=== PATIENT | female | born 1970 | race Caucasian/White ===

== ENCOUNTER 2019-03-06 17:44 | Emergency (ER) | payer SELFPAY ==
[~2019-03-06] VITALS: Ht 165.1 cm; Wt 59.9 kg
[~2019-03-06 17:44] MED LIST: DIPH25CA83 PO
--- NOTE | 2019-03-06 17:50 | NUR ---
in room , 12 lead ekg done, seen by Dr Hines
[2019-03-06] MEDS ORDERED: ALBUTEROL SULFATE 2.5 MG/3 ML NEBU NEB ONE ×3 (18:00→20:45)
[2019-03-06] MEDS ORDERED: IPRATROPIUM BROMIDE 0.5 MG/2.5 ML NEBU NEB ONE (18:00)
[2019-03-06] MEDS ORDERED: methylPREDNISolone SOD SUCC 125 MG/2 ML VIAL IV ONE (18:00)
[2019-03-06 18:11] LABS: BASOPHILS % (AUTO) 0.4 % (0.0-2.0); EOSINOPHILS # (AUTO) 0.6 K/uL (0.0-0.7); EOSINOPHILS % (AUTO) 5.8 % (0.0-7.0); HEMATOCRIT 38.9 % (31.2-41.9); HEMOGLOBIN 13.1 g/dL (10.9-14.3); LYMPHOCYTES # (AUTO) 0.9 K/uL (20.0-40.0); LYMPHOCYTES % (AUTO) 8.2 % (20.5-51.5); MEAN CORPUSCULAR HEMOGLOBIN 29.7 uug (24.7-32.8); MEAN CORPUSCULAR HGB CONC 34 g/dL (32.3-35.6); MEAN CORPUSCULAR VOLUME 88.4 fL (75.5-95.3); MONOCYTES # (AUTO) 0.4 K/uL (2.0-10.0); MONOCYTES % (AUTO) 3.7 % (0.0-11.0); NEUTROPHILS % (AUTO) 81.9 % (38.5-71.5); PLATELET COUNT (AUTO) 243 K/uL (179-408)
[2019-03-06] MEDS ORDERED: IPRATROPIUM BROMIDE 0.5 MG/2.5 ML NEBU ONE (18:12)
[2019-03-06] MEDS ORDERED: ALBUTEROL SULFATE 2.5 MG/3 ML NEBU ONE ×3 (18:12→21:02)
[2019-03-06] MEDS ORDERED: ALBUTEROL SULFATE 2.5 MG/ 0.5 ML NEBU ONE (18:12)
[2019-03-06 18:22] LABS: CREATININE 0.7 mg/dL (0.6-1.3); POTASSIUM 4.2 mmol/L (3.5-5.1)
--- NOTE | 2019-03-06 18:30 | NUR ---
breathing treatments given per RT. IV #20 right hand. solumedrol 125 mg given IV. feeling better post treatments and medications
[2019-03-06] MEDS ORDERED: methylPREDNISolone SOD SUCC 125 MG/2 ML VIAL ONE (18:34)
[2019-03-06 18:35] LABS: BILIRUBIN,DIRECT 0.1 mg/dL (0.0-0.2); BILIRUBIN,TOTAL 0.4 mg/dL (0.2-1.0); TOTAL PROTEIN, SERUM 6.9 g/dL (6.4-8.2)
--- NOTE | 2019-03-06 19:10 | NUR ---
report given to Octaviano BARAJAS
--- NOTE | 2019-03-06 19:15 | NUR ---
Report received; patient AAO, states she feels better after meds and respiratory tx.
[2019-03-06] MEDS ORDERED: BENZONATATE 100 MG CAPSULE PO ONE (20:30)
[2019-03-06] MEDS ORDERED: BENZONATATE 100 MG CAPSULE ONE (20:39)
--- NOTE | 2019-03-06 21:56 | NUR ---
Patient discharged to home in stable conditon. Written and verbal after care instructions given. Patient verbalizes understanding of instructions.
[2019-03-06 22:07] VITALS: BP 120/65
== END 2019-03-06 22:00 | disposition home or self-care (01) ==
LOC: ER 17:44
DX: J20.9 Acute bronchitis, unspecified (principal); F32.9 Major depressive disorder, single episode, unspecified; Z88.8 Allergy status to other drugs, medicaments and biological substances; Z88.5 Allergy status to narcotic agent; Z79.899 Other long term (current) drug therapy
CPT/HCPCS: 36415; 71045; 80048; 80076; 83880; 84484; 85025; 85379; 93005; 94640 ×3; 96374; 99285; J2930; 70030-TC; A4663; J3590

== ENCOUNTER 2019-07-15 11:49 | Emergency (ER) | payer OTHER ==
[~2019-07-15] VITALS: Ht 165.1 cm; Wt 61.2 kg
[2019-07-15] MEDS ORDERED: FAMOTIDINE. 20 MG/2 ML VIAL IV ONE ×2 (12:15→12:22)
[2019-07-15] MEDS ORDERED: LIDOCAINE VISCUS 2% 15 ML UDC MM ONE (12:15)
[2019-07-15] MEDS ORDERED: ONDANSETRON 4 MG/2 ML VIAL IV ONE (12:15)
[2019-07-15] MEDS ORDERED: IV NORMAL SALINE 1000 ML BAG IV ONE (12:15)
[2019-07-15] MEDS ORDERED: MAG HYDROX/AL HYDROX/SIMETH 30 ML LIQUID UDC PO ONE (12:15)
[2019-07-15] MEDS ORDERED: ONDANSETRON 4 MG/2 ML VIAL ONE (12:21)
[2019-07-15] MEDS ORDERED: MAG HYDROX/AL HYDROX/SIMETH 30 ML LIQUID UDC ONE (12:22)
[2019-07-15] MEDS ORDERED: LIDOCAINE VISCUS 2% 15 ML UDC ONE (12:22)
[2019-07-15 12:27] LABS: BASOPHILS # (AUTO) 0.1 K/uL (0.0-8.0); BASOPHILS % (AUTO) 0.7 % (0.0-2.0); EOSINOPHILS # (AUTO) 0.6 K/uL (0.0-0.7); EOSINOPHILS % (AUTO) 6.3 % (0.0-7.0); HEMATOCRIT 36.5 % (31.2-41.9); HEMOGLOBIN 12.5 g/dL (10.9-14.3); LYMPHOCYTES % (AUTO) 10.9 % (20.5-51.5); MEAN CORPUSCULAR HEMOGLOBIN 30.8 uug (24.7-32.8); MEAN CORPUSCULAR HGB CONC 34 g/dL (32.3-35.6); MEAN CORPUSCULAR VOLUME 89.8 fL (75.5-95.3); MONOCYTES # (AUTO) 0.4 K/uL (2.0-10.0); MONOCYTES % (AUTO) 4.6 % (0.0-11.0); NEUTROPHILS # (AUTO) 7.2 K/uL (1.8-8.9); NEUTROPHILS % (AUTO) 77.5 % (38.5-71.5); PLATELET COUNT (AUTO) 294 K/uL (179-408); RED BLOOD CELL COUNT(AUTO) 4.07 MIL/uL (3.63-4.92); WHITE BLOOD COUNT (AUTO) 9.3 K/uL (3.8-11.8)
[2019-07-15 12:35] LABS: CREATININE 0.8 mg/dL (0.6-1.3); POTASSIUM 3.9 mmol/L (3.5-5.1)
[2019-07-15 12:46] LABS: BILIRUBIN,DIRECT 0.1 mg/dL (0.0-0.2); BILIRUBIN,TOTAL 0.6 mg/dL (0.2-1.0); TOTAL PROTEIN, SERUM 7.5 g/dL (6.4-8.2)
[2019-07-15] MEDS ORDERED: IBUP-1957 PO (13:26)
[2019-07-15 13:47] LABS: *BILIRUBIN,URIN NEGATIVE (NEGATIVE); *BLOOD, URINE NEGATIVE (NEGATIVE); *CLARITY,URINE CLEAR (CLEAR); *COLOR,URINE YELLOW (YELLOW); *KETONES,URINE TRACE (NEGATIVE); *UROBILINOGEN,URINE 0.2 E.U./dl (NORMAL); LEUKOCYTE ESTERASE ,URINE NEGATIVE (NEGATIVE); NITRITE, URINE NEGATIVE (NEGATIVE); PH,URINE 5.5 (5.0-8.0); UGLUCOSE NEGATIVE (NEGATIVE)
[2019-07-15 13:55] LABS: *URINE HCG, QUAL NEGATIVE (NEGATIVE)
--- NOTE | 2019-07-15 14:41 | NUR ---
Patient discharged to home in stable conditon. Written and verbal after care instructions given. Patient verbalizes understanding of instructions. Patient ambulated with stable gait. IV removed. Catheter intact and site benign. Pressure and 4x4 gauze applied to site. No bleeding noted.
[2019-07-15 14:43] VITALS: BP 121/80
== END 2019-07-15 14:44 | disposition home or self-care (01) ==
LOC: ER 11:51
DX: K29.00 Acute gastritis without bleeding (principal); K08.89 Other specified disorders of teeth and supporting structures; F32.9 Major depressive disorder, single episode, unspecified; Z88.5 Allergy status to narcotic agent; Z88.8 Allergy status to other drugs, medicaments and biological substances; Z79.1 Long term (current) use of non-steroidal anti-inflammatories (NSAID); Z79.899 Other long term (current) drug therapy
CPT/HCPCS: 36415; 76700; 80048; 80076; 81001; 83690; 84484; 84703; 85025; 93005; 96374; 96375; 99284; J2405; J3490; 70030-TC; A4663; J7030

== ENCOUNTER 2020-06-20 17:49 | Emergency (ER) | payer MEDICAID ==
[~2020-06-20] VITALS: Ht 167.6 cm; Wt 61.2 kg
--- NOTE | 2020-06-20 19:27 | NUR ---
PT TO DR JAVIER LACEY EVALUATING THE PT.
[2020-06-20] MEDS ORDERED: TRAMADOL HCL 50 MG TABLET PO ONE (19:45)
[2020-06-20] MEDS ORDERED: TRAMADOL HCL 50 MG TABLET ONE (19:48)
--- NOTE | 2020-06-20 19:51 | NUR ---
SILVA COMPLETED, ULTRAM ADMINISTERED, DR HERRERA D/C'D PT HOME,ACI GIVEN. PT AMBULATED W/O DIFF/TOOK ALL BELONGINGS.
[2020-06-20 19:53] VITALS: BP 142/84
== END 2020-06-20 19:54 | disposition home or self-care (01) ==
LOC: ER 17:49
DX: S00.83XA Contusion of other part of head, initial encounter (principal); W01.198A Fall on same level from slipping, tripping and stumbling with subsequent striking against other object, initial encounter; Y92.89 Other specified places as the place of occurrence of the external cause; Z88.5 Allergy status to narcotic agent
CPT/HCPCS: A4663

== ENCOUNTER 2020-06-20 21:10 | Emergency (ER) | payer MEDICAID ==
[~2020-06-20] VITALS: Ht 167.6 cm; Wt 60.8 kg
--- NOTE | 2020-06-20 22:07 | NUR ---
MSE COMPLETED, PT D/C'D HOME ACI/RX X1 GIVEN. PT AMBULATED W/O DIFF, TOOK ALL BELONGINGS
--- NOTE | 2020-06-20 22:08 | NUR ---
Patient discharged to home in stable condition. Written and verbal after care instructions given. Patient verbalizes understanding of instructions. Stressed follow up or return to ER for worsening s/s. Patient d/c by Dr. Chilel. Dr. Chilel hand delivered patients exit care. Patient able to ambul;ate with steady gait.
[2020-06-20 22:09] VITALS: BP 148/81
== END 2020-06-20 22:09 | disposition home or self-care (01) ==
LOC: ER 21:11
DX: S00.83XD Contusion of other part of head, subsequent encounter (principal); X58.XXXD Exposure to other specified factors, subsequent encounter; K08.89 Other specified disorders of teeth and supporting structures; Z88.5 Allergy status to narcotic agent; F32.9 Major depressive disorder, single episode, unspecified; Z87.01 Personal history of pneumonia (recurrent)
CPT/HCPCS: A4663

== ENCOUNTER 2021-06-09 17:42 | Emergency (ER) | payer BC, OTHER ==
[~2021-06-09] VITALS: Ht 167.6 cm; Wt 61.2 kg
[2021-06-09 18:48] LABS: *BILIRUBIN,URIN NEGATIVE (NEGATIVE); *BLOOD, URINE NEGATIVE (NEGATIVE); *CLARITY,URINE CLEAR (CLEAR); *COLOR,URINE YELLOW (YELLOW); *KETONES,URINE NEGATIVE (NEGATIVE); *UROBILINOGEN,URINE 0.2 E.U./dl (NORMAL); LEUKOCYTE ESTERASE ,URINE NEGATIVE (NEGATIVE); NITRITE, URINE NEGATIVE (NEGATIVE); UGLUCOSE NEGATIVE (NEGATIVE)
[2021-06-09 18:49] LABS: *URINE HCG, QUAL NEGATIVE (NEGATIVE)
[2021-06-09 18:55] LABS: HEMATOCRIT 35.3 % (31.2-41.9); MEAN CORPUSCULAR HEMOGLOBIN 30.4 uug (24.7-32.8); PLATELET COUNT (AUTO) 296 K/uL (179-408)
[2021-06-09 19:01] LABS: CREATININE 0.8 mg/dL (0.6-1.3); POTASSIUM 4.2 mmol/L (3.5-5.1)
[2021-06-09 19:07] LABS: BILIRUBIN,DIRECT 0.1 mg/dL (0.0-0.2); BILIRUBIN,TOTAL 0.2 mg/dL (0.2-1.0); TOTAL PROTEIN, SERUM 7.3 g/dL (6.4-8.2)
--- NOTE | 2021-06-09 19:21 | NUR ---
RECEIEVED REPORT FROM KARL ARIAS. PT NOTED TO BE IN BED A/O X3, DENIES ANY PAIN DISCOMFORT. BED IN LOWEST POSITION FOR SAFETY PRECAUTIONS.
--- NOTE | 2021-06-09 19:30 | NUR ---
US (LATOYA) AT BEDSIDE.
[2021-06-09] MEDS ORDERED: TRAM50TA2 PO (19:44)
[2021-06-09] MEDS ORDERED: TRAMADOL HCL 50 MG TABLET PO ONE (19:45)
--- NOTE | 2021-06-09 20:00 | NUR ---
Patient discharged to home in stable condition. Written and verbal after care instructions given. Patient verbalizes understanding of instructions. Stressed follow up or return to ER for worsening s/s. Steady gait, picked up by family.
[2021-06-09 20:01] VITALS: BP 124/76
[2021-06-09] MEDS ORDERED: TRAMADOL HCL 50 MG TABLET ONE (20:01)
== END 2021-06-09 20:02 | disposition home or self-care (01) ==
LOC: ER 17:44
DX: R10.9 Unspecified abdominal pain (principal); Z87.01 Personal history of pneumonia (recurrent); Z88.5 Allergy status to narcotic agent
CPT/HCPCS: 36415; 76770; 83690; 84703; 85025; A4663